=== PATIENT | female | born 1970 | race Caucasian/White ===

== ENCOUNTER 2017-11-08 06:02 | Inpatient (IN) | payer OTHER ==
[~2017-11-08] VITALS: Ht 165.1 cm; Wt 87.8 kg
[2017-11-08] VITALS (19 sets, daily range): BP systolic 112–144; BP diastolic 61–84; PULSE 77–111; RESP 15–20; Ht 165.1 cm; Wt 87.8 kg
[2017-11-08] MEDS ORDERED: POLYMYXIN/BACITRACIN 1L IRRIG ONE (06:45)
[2017-11-08] MEDS ORDERED: BUPIVACAINE 0.5% (SDV) 30 ML INJ ONE (06:46)
[2017-11-08] MEDS ORDERED: LIDOCAINE 1%/EPI 30 ML INJ ONE (06:46)
[2017-11-08] MEDS ORDERED: THROMBIN 5000 UNIT VIAL ONE ×2 (06:46→07:01)
[2017-11-08] MEDS ORDERED: ROCURONIUM 50 MG INJ ONE ×2 (07:00→07:32)
[2017-11-08] MEDS ORDERED: LIDOCAINE 2% (SDV) 5 ML INJ ONE (07:00)
[2017-11-08 07:04] LABS: BASOPHIL # 0.1 10^3/ul (0.0-0.1); BASOPHILS % 0.6 % (0.0-2.0); EOSINOPHILS # 0.2 10^3/ul (0.0-0.5); EOSINOPHILS % 1.7 % (0.0-7.0); HEMATOCRIT 40.9 % (37.0-47.0); HEMOGLOBIN 14.7 g/dl (12.0-16.0); LYMPHOCYTES % 24.7 % (15.0-51.0); MEAN CORPUSCULAR HEMOGLOBIN 31.7 pg (29.0-33.0); MEAN CORPUSCULAR HGB CONC 35.9 g/dl (32.0-37.0); MEAN CORPUSCULAR VOLUME 88.1 fl (82.0-101.0); MEAN PLATELET VOLUME 10.1 fl (7.4-10.4); MONOCYTE # 0.8 10^3/ul (0.3-0.9); MONOCYTES % 6.4 % (0.0-11.0); NEUTROPHILS % 66.3 % (39.0-77.0); PLATELET COUNT 187 10^3/UL (140-415); RED BLOOD COUNT 4.64 10^6/ul (4.20-5.40); RED CELL DISTRIBUTION WIDTH 12.1 % (11.5-14.5)
[2017-11-08 07:20] LABS: INR 1.12; PROTIME 14.6 Sec (11.9-14.9); PT RATIO 1.1
[2017-11-08 07:21] LABS: PARTIAL THROMBOPLASTIN TIME 27.1 Sec (25.0-35.0)
[2017-11-08 07:24] LABS: ALBUMIN/GLOBULIN RATIO 1.17; BILIRUBIN,INDIRECT 0.7 mg/dl (0-1.1); BILIRUBIN,TOTAL 0.7 mg/dl (0.2-1.3); TOTAL PROTEIN 7.4 g/dl (6.1-8.1)
[2017-11-08 07:32] LABS: CALCIUM 9.5 mg/dl (8.4-10.2); CREATININE 0.63 mg/dl (0.44-1.00); POTASSIUM 3.7 mmol/L (3.5-5.1)
[2017-11-08] MEDS ORDERED: PROPOFOL 20 ML ONE (07:32)
[2017-11-08] MEDS ORDERED: MIDAZOLAM 1 MG/ML 2 ML INJ ONE (07:47)
[2017-11-08] MEDS ORDERED: morphine 10 MG INJ ONE (08:27)
[2017-11-08] MEDS ORDERED: DEXAMETHASONE 4 MG/ML 1 ML INJ ONE (08:32)
[2017-11-08] MEDS ORDERED: ONDANSETRON 4 MG INJ ONE (08:32)
[2017-11-08] MEDS ORDERED: GELATIN SIZE 100 SPONGE ONE (08:49)
[2017-11-08] MEDS ORDERED: THROMBIN 5000 UNIT VIAL TOP ONE (09:21)
[2017-11-08] MEDS ORDERED: NEOSTIGMINE 3 MG/3 ML SYRINGE ONE (11:53)
[2017-11-08] MEDS ORDERED: GLYCOPYRROLATE 0.4 MG INJ ONE (11:53)
--- NOTE | 2017-11-08 12:03 | SIPON ---
Date/Time of Note Date/Time of Note DATE: 11/08/17 TIME: 12:00 Operative Report Preoperative Diagnosis 1) L4-5 DDD and lateral recess/foraminal stenosis 2)post laminectomy syndrome Postoperative Diagnosis Same as above Operation/Procedure Performed MIS L4-5 TLIF and redo L. L4 decompressive laminectomy (RTI 12mm height cage, 6.5mm pedicle screws) Surgeon see signature line pharmacy technician assistant None Anesthesia: general Estimated blood loss: 50 - 100 ml's Transfusion Required none Specimen None Grafts/Implants See op report Complications none ALEXANDREA SANCHEZ MD Nov 08, 2017 12:03
[2017-11-08] MEDS ORDERED: HYDROmorphONE (0.2 MG/ML) 10ML SYG IV ONE (12:25)
[2017-11-08] MEDS ORDERED: KETOROLAC 30 MG INJ IV PRN (12:30)
[2017-11-08] MEDS ORDERED: ONDANSETRON 4 MG INJ IV PRN ×2 (12:30)
[2017-11-08] MEDS ORDERED: METOCLOPRAMIDE 10 MG INJ IV PRN (12:30)
[2017-11-08] MEDS ORDERED: FENTAnyl 50 MCG/ML VIAL IV PRN ×3 (12:30)
[2017-11-08] MEDS ORDERED: HYDROmorphONE (0.2 MG/ML) 10ML SYG IV PRN ×2 (12:30)
[2017-11-08] MEDS ORDERED: hydrALAzine 20 MG INJ IV PRN (12:30)
[2017-11-08] MEDS: CEFAZOLIN 1 GM/50 ML (PMX) 50 ML IVPB SCH ×2 (12:30→20:32)
[2017-11-08] MEDS ORDERED: MEPERIDINE 25 MG INJ IV PRN (12:30)
[2017-11-08] MEDS ORDERED: DIPHENHYDRAMINE 50 MG INJ IV PRN (12:30)
[2017-11-08] MEDS ORDERED: ALBUTEROL 0.083% (NEB) 2.5 MG/3 ML AMP HHN PRN ×2 (12:30→15:00)
[2017-11-08] MEDS ORDERED: LABETALOL HCL 20MG INJ IV PRN (12:30)
[2017-11-08] MEDS ORDERED: MIDAZOLAM 1 MG/ML 2 ML INJ IV PRN (12:30)
[2017-11-08] MEDS ORDERED: EPHEDrine SULFATE 50 MG/5 ML SYG IV PRN (12:30)
[2017-11-08] MEDS ORDERED: NALOXONE (0.4 MG/ML) INJ IV PRN (12:30)
[2017-11-08] MEDS ORDERED: BISACODYL 10 MG SUPP PR PRN (12:30)
[2017-11-08] MEDS: HYDROmorphONE (0.2 MG/ML) 10ML SYG IV PRN ×2 (12:35→12:42)
[2017-11-08] MEDS ORDERED: GABAPENTIN 300 MG CAP PO SCH (13:00)
[2017-11-08] MEDS: CYCLOBENZAPRINE 10 MG TAB PO SCH ×2 (13:00→20:44)
[2017-11-08] MEDS: 1/2 NS + KCL 20 MEQ 1,000 ML IV SCH ×2 (13:33→22:15)
[2017-11-08] MEDS: HYDROCODONE/APAP (10/325) TAB PO SCH ×2 (13:39→18:02)
[2017-11-08] MEDS: traMADol 50 MG TAB PO SCH ×2 (13:39→18:03)
[2017-11-08] MEDS: DOCUSATE SODIUM 100 MG CAP PO SCH ×2 (13:39→20:44)
--- NOTE | 2017-11-08 15:02 | HP ---
Date/Time of Note Date/Time of Note DATE: 11/08/17 TIME: 14:45 Assessment/Plan VTE Prophylaxis VTE Prophylaxis Intervention: SCD's Lines/Catheters IV Catheter Type (from Nrsg): Peripheral IV Urinary Cath still in place: Yes Reason Cath still needed: other (indicate) (Postoperatively) Assessment/Plan Assessment/Plan 47-year-old female with: 1. Status post L4-5 TLIF and redo L4 decompressive laminectomy, POD#0 Patient remained comfortable currently, her pain regimen has been reviewed and adjusted. She is on [place] and Flexeril scheduled every [address] Braba, will monitor, I did ask them to change the Ultram as a as needed order. Patient denies being on Neurontin before. PT eval, further recommendations per neurosurgery. 2. Asthma: Respiratory status is currently stable, patient on room air, will add nebulizer treatment as needed. Prophylaxis: SCDs for DVT prophylaxis, Protonix for GI prophylaxis Disposition: Follow-up further physical therapy and neurosurgery recommendations. Hopefully discharge planning in the next 24-48 hours. HPI/ROS Admit Date/Time Admit Date/Time Nov 08, 2017 at 06:02 Hx of Present Illness Chief complaint: Elective L4-L5 laminectomy for L4-L5 degenerative disc disease History of presenting illness: This is a 47-year-old female with history of chronic low back pain and lower extremity pain bilaterally, intractable, unresponsive to physical therapy or pain management who was brought in electively for L4-L5 TLIF and redo L4 decompressive laminectomy with Dr. Barba Patient only reports a past medical history of asthma, she also is a former tobacco user, she quit a few weeks ago. Postoperatively, patient is doing well, pain is controlled. She is admitted to a medical surgical bed for physical therapy and hopefully discharge planning within 24-48 hours. Patient denies any cardiopulmonary, genitourinary, gastrointestinal complaints ROS Constitutional: no complaints Eyes: no complaints ENT: no complaints Respiratory: no complaints Cardiovascular: no complaints Gastrointestinal: no complaints Genitourinary: no complaints Musculoskeletal: back pain, other (Lower extremities pain) Neurologic: no complaints Endocrine: no complaints Lymphatic: no complaints Psychological: no complaints Immunologic: no complaints PMH/Family/Social Past Medical History Asthma Chronic low back pain Past Surgical History C-sections 4 Right knee arthroscopic surgery ACDF in 2006 lumbar Past Surgical Hx: appendectomy, cholecystectomy Family History Significant Family History: no pertinent family hx Social History Alcohol Use: none Smoking Status: Former smoker (Quit smoking a few weeks ago, she used to smoke 2 packs/day for 20 years) Drug Use: none Exam/Review of Systems Vital Signs Vitals Vital Signs Date Time Temp Pulse Resp B/P Pulse Ox O2 Delivery O2 Flow Rate FiO2 11/08/17 13:04 86 16 131/70 96 Nasal Cannula 2.0 11/08/17 12:19 97.9 Exam Constitutional: alert, oriented, well developed Respiratory: clear to auscultation, normal air movement Cardiovascular: nl pulses, regular rate and rhythm Gastrointestinal: non-tender, soft Musculoskeletal: nl extremities to inspection Extremities: normal pulses, other (No edema, clubbing or cyanosis) Neurological: IMPORT/EXPORT ANALYST II-XII intact, nl mental status, nl speech, other (Strength exam and sensation exam difficult, patient just came out of the OR. Will reevaluate in a.m.) Labs Result Diagram: 11/08/17 0630 11/08/17 0630 Medications Medications Current Medications Potassium Chloride/Sodium Chloride (1/2 NS + KCl 20 Meq) 1,000 ml @ 100 mls/hr Q10H IV Last administered on 11/08/17t 13:33; Admin Dose 100 MLS/HR; Start at 12:15 Acetaminophen/ Hydrocodone Bitart ([place] (10/325)) 2 tab Q6H PO ; Start at 12:30 Tramadol HCl (Ultram) 50 mg Q6H PO ; Start 11/08/17 at 12:30; Stop 11/09/17 at 12:30 Hydromorphone HCl 0.4 mg 0.4 mg Q1H PRN IV BREAKTHROUGH PAIN; Start 11/08/17 at 12:30 Cefazolin Sodium (Ancef 1 Gm/50 ml (Pmx)) 50 ml @ 100 mls/hr Q8H IVPB ; Start 11/08/17 at 12:30; Stop 11/09/17 at 04:59 Ondansetron HCl (Zofran Inj) 4 mg Q6H PRN IV NAUSEA AND/OR VOMITING; Start at 12:30 Bisacodyl (Dulcolax Supp) 10 mg DAILY PRN SD CONSTIPATION; Start 11/08/17 at 12:30 Docusate Sodium (Colace) 100 mg BID PO ; Start 11/08/17 at 12:30 Pantoprazole (Protonix Iv) 40 mg DAILY@06 IV ; Start 11/09/17 at 06:00 Cyclobenzaprine HCl (Flexeril) 10 mg TID PO ; Start 11/08/17 at 13:00 Naloxone HCl (Narcan) 0.2 mg Q2M PRN IV RR 8 BREATHS/MIN OR LESS; Start at 12:30 Tramadol HCl (Ultram) 50 mg Q6 PRN PO PAIN; Start 11/08/17 at 18:00; Status UNV Procedures Procedures L4-5 TLRANDY HODGE Nov 08, 2017 14:59
--- NOTE | 2017-11-08 16:16 | RADRPT ---
PROCEDURE: X-ray fluoroscopy guidance CLINICAL INDICATION: L4-L5 spinal fusion. TECHNIQUE: Fluoroscopic guidance was utilized for an intraoperative procedure. Fluoro time: 249 seconds Number of images/sequences: 5 COMPARISON: None. FINDINGS: Fluoroscopic images were obtained intraoperatively for localization during L4-L5 spinal fusion with intervertebral device. The procedure was performed by Dr. Barba. IMPRESSION: 1. X-ray fluoroscopic guidance utilized for intraoperative procedure for L4-L5 spinal fusion. 2. Please refer to the procedural/operative report. RPTAT: AAEE Physician Derek Date Time Electronically viewed and signed by Physician Derek on 11/08/2017 16:16 PH/
[2017-11-08] MEDS: HYDROmorphONE 0.5 MG/0.5 ML SYG IV PRN ×2 (16:30→20:45)
--- NOTE | 2017-11-08 22:28 | OPR ---
Date/Time of Note Date/Time of Note DATE: 11/08/17 TIME: 22:28 Operative Report Preoperative Diagnosis 1. L4-L5 degenerative disc disease and lateral recess/foraminal stenosis 2. Postlaminectomy syndrome Postoperative Diagnosis 1. L4-L5 degenerative disc disease and lateral recess/foraminal stenosis 2. Postlaminectomy syndrome Operation/Procedure Performed 1. Decompressive left L4 laminectomy (more laminectomy done that would be required for a simple lumbar interbody fusion) 2. Minimally invasive total left L4-L5 facetectomy for transforaminal lumbar interbody arthrodesis 3. Placement of intervertebral cage at L4-L5 (RTI [place] 12 mm height peek TLIF cage) 4. Minimally invasive L4-L5 posterior arthrodesis 5. Minimally invasive percutaneous posterior L4-L5 instrumentation (RTI [place] 6.5 mm diameter pedicle screws) 6. Bone marrow aspirate harvest 7. Morcellized local autologous bone graft harvest 8. Allograft placement (demineralized bone matrix putty) 9. Intraoperative microscope with microdissection 10. Intraoperative fluoroscopy with professional interpretation 11. Intraoperative neurophysiologic monitoring including SSEP, MEP, EMG Surgeon see signature line Manager Medical None Anesthesia Type: general Estimated Blood Loss: 50 - 100 ml's Transfusion none Specimen None Grafts/Implants See below Complications none Pt Condition Post Procedure: stable Disposition: PACU Procedure Description Date of surgery: 11/08/2017 Operating surgeon: Jerry Barba M.D. Preoperative diagnosis: 1. L4-L5 degenerative disc disease and lateral recess/foraminal stenosis 2. Postlaminectomy syndrome Postoperative diagnosis: Same as above Operation performed: 1. Decompressive left L4 laminectomy (more laminectomy done that would be required for a simple lumbar interbody fusion) 2. Minimally invasive total left L4-L5 facetectomy for transforaminal lumbar interbody arthrodesis 3. Placement of intervertebral cage at L4-L5 (RTI [place] 12 mm height peek TLIF cage) 4. Minimally invasive L4-L5 posterior arthrodesis 5. Minimally invasive percutaneous posterior L4-L5 instrumentation (RTI [place] 6.5 mm diameter pedicle screws) 6. Bone marrow aspirate harvest 7. Morcellized local autologous bone graft harvest 8. Allograft placement (demineralized bone matrix putty) 9. Intraoperative microscope with microdissection 10. Intraoperative fluoroscopy with professional interpretation 11. Intraoperative neurophysiologic monitoring including SSEP, MEP, EMG Indication for procedure: This is a 47-year-old female with long-standing history of progressively increasing axial low back pain to a much greater degree than bilateral lower extremity radiating pain (greater on the left than the right in part in the L5 distribution). The patient has already undergone extensive physical therapy as well as prior interventional pain management including various injections with no significant long-term improvement of her symptoms. The patient also has had a remote history of a lumbar laminectomy that initially helped her with her radiating lower extremity pain but has been accompanied by increasing axial low back pain over time. She was found to have the above image findings on her MRI of lumbar spine and the risks and benefits of the above operation were explained in great detail to the patient. She was not accompanied by her to her clinic visits with me and her was taking care of her children this morning prior to surgery. It was also explained to the patient that she does have L3-L4 small disc herniation that could lead to further adjacent segment degeneration over time and may also require further surgical intervention including extension of her lumbar fusion to the level above or below the current level. She also understood that she may still have residual pain even with the above operation. She agreed to undergo the above surgery. Intraoperative procedure: The patient was brought to the operating room. After general anesthesia was obtained, she was placed prone on top of the open Dg table. All pressure points were noted and padded appropriately. Her arms were abducted in Superman position, less than 90. The patient's prior midline lumbar incision was noted. Then, paraspinal vertical lines approximately 4.5 centimeters lateral to midline was marked on each side. After the skin was prepped and draped under standard sterile fashion, the spinal needle was used under AP and lateral fluoroscopy to locate the entry points of the L4 and L5 pedicles on each side. Then a small incision connecting the entry points of the spinal needles on each side was marked. Local anesthetics were infiltrated into the marked incisions on each side. The skin was then incised down to the level of the fascia. The Jamshidi needles were then used to cannulate the L4 and L5 pedicles bilaterally using a combination of AP and lateral fluoroscopy. When the tip of the Jamshidi needle was at the junction of the pedicle and vertebral body, another AP fluoroscopy was taken to confirm that the medial wall of the pedicle was not breached. The Jamshidi needle was then slightly advanced into the vertebral body under direct lateral fluoroscopy. Several cc of bone marrow aspirate was harvested from each of the pedicles through the Jamshidi needle. The Jamshidi needles were then exchanged with K wires. Each of the K wires was then tested with EMG testing and all the testing thresholds was greater then 12 mA. 6.5 mm diameter RTI [place] percutaneous pedicle screws were then inserted on the right side at L4 and L5 under direct lateral fluoroscopy achieving good bony purchase. No screws were placed on the left side yet as we were doing the transforaminal lumbar interbody fusion procedure on this side. The K wires were then bent and stapled to the side of the drapes on the left side. The sharp K wire was inserted under direct lateral fluoroscopy and placed on top of the left L4-L5 facet complex under direct lateral fluoroscopy parallel to the L4-L5 disc space that was very severely collapsed and degenerated. Serial tube dilators were inserted and the posterior soft tissue was dissected off the facet complex. The final working tube was inserted medialized and locked to the table parallel to the L4-L5 disc space under direct lateral fluoroscopy. The operating microscope was brought into the field. The soft tissue was then denuded off the L4-L5 facet complex. There was obvious facet arthropathy noted at L4-L5 on the left. Using a high-speed drill, and Kerrison rongeurs we then performed a complete left L4-L5 facetectomy and a left L4 decompressive laminectomy. All the bone was harvested for later grafting. The left L4-L5 neural foramen was then completely unroofed. The exiting left L4 nerve root was left Completely covered up with the soft tissue and protected. The left L4-L5 annulus was then cut open and the disc space was extremely small. Using the thinnest shaver, we were able to initially distract the severely collapsed disc space for starters. Then we were able to severely distract using the top of her janiya up until a 12 mm shaver. Care was taken not to injure the endplates. The endplate bone quality appeared to be quite good. Endplates were completely decorticated. Complete discectomy was done. The disc space was then copiously irrigated with antibiotic solution. We then decided to use a 12 mm height peek RTI [place] TLIF. Cage was then packed with a combination of the locally harvested pedicle bone marrow aspirate, morcellized local autologous bone graft and demineralized bone matrix putty allograft. Some of the remaining biologic material was then inserted into the anterior disc space. Then the cage was inserted under direct lateral fluoroscopy, medialized and countersunk. This allowed us to achieve excellent distraction of the severely collapsed L4-L5 disc space. We then removed the ligamentum flavum and completely decompressed the left side of the thecal sac and the traversing left L5 nerve root. Complete hemostasis was obtained. Several pieces of Gelfoam with thrombin were placed over the left L4- L5 neural foramen to protect it. The remaining combination of biologic material was placed over the L4-L5 neural foramen for posterior arthrodesis. The tube was then removed. Same sized pedicle screws were also placed on the left side at L4-L5 under direct lateral fluoroscopy. Appropriate size yoshi was then measured and inserted percutaneously. The setscrews were inserted and we compressed along the L4-L5 disc space on each side. The setscrews were then tightened with the torque and counter torque wrench devices. The pedicle screw posts were then broken off. A final AP and lateral x-ray showed excellent positioning of the hardware. The wound was copiously irrigated with antibiotic solution on both sides. The muscle and fascial layers were reapproximated with interrupted sutures. The dermal layer was reapproximated with interrupted sutures. The skin was reapproximated with Dermabond. A sterile dressing was placed on each incision. The patient was then placed supine on the hospital bed. She was then woken up, extubated and transported to the recovery room in stable condition. The patient was moving her upper and lower extremities equally bilaterally and to command in the recovery room. Estimated blood loss: 100 cc Blood products administered: none Packs/drains: None Specimen removed: None Type of anesthesia: Gen. Incision: Bilateral paraspinal lumbar Skin closure: Dermabond Patient's condition: Stable Prognosis: Good Wound classification: JERRY Yusuf MD Nov 08, 2017 22:28
[2017-11-09] MEDS: traMADol 50 MG TAB PO SCH ×3 (00:30→11:29)
[2017-11-09] MEDS: HYDROCODONE/APAP (10/325) TAB PO SCH ×3 (00:39→13:04)
[2017-11-09 02:29] VITALS: BP 132/74; RESP 18
[2017-11-09] MEDS: CEFAZOLIN 1 GM/50 ML (PMX) 50 ML IVPB SCH (04:50)
[2017-11-09] MEDS ORDERED: PANTOPRAZOLE 40 MG INJ IV SCH (06:00)
[2017-11-09 06:22] LABS: BASOPHILS % 0.2 % (0.0-2.0); HEMATOCRIT 36.6 % (37.0-47.0); HEMOGLOBIN 12.7 g/dl (12.0-16.0); LYMPHOCYTES # 2.4 10^3/ul (0.8-2.9); LYMPHOCYTES % 12.9 % (15.0-51.0); MEAN CORPUSCULAR HEMOGLOBIN 31.4 pg (29.0-33.0); MEAN CORPUSCULAR HGB CONC 34.7 g/dl (32.0-37.0); MEAN CORPUSCULAR VOLUME 90.6 fl (82.0-101.0); MEAN PLATELET VOLUME 10.3 fl (7.4-10.4); MONOCYTE # 1.4 10^3/ul (0.3-0.9); MONOCYTES % 7.3 % (0.0-11.0); NEUTROPHIL # 14.7 10^3/ul (1.6-7.5); NEUTROPHILS % 79.1 % (39.0-77.0); PLATELET COUNT 182 10^3/UL (140-415); RED BLOOD COUNT 4.04 10^6/ul (4.20-5.40); RED CELL DISTRIBUTION WIDTH 11.9 % (11.5-14.5); WHITE BLOOD COUNT 18.5 10^3/ul (4.8-10.8)
[2017-11-09 06:59] LABS: CALCIUM 8.6 mg/dl (8.4-10.2); CREATININE 0.65 mg/dl (0.44-1.00); POTASSIUM 4.2 mmol/L (3.5-5.1)
[2017-11-09 07:04] LABS: MAGNESIUM 1.9 mg/dl (1.7-2.5); PHOSPHORUS 3.3 mg/dl (2.5-4.9)
[2017-11-09] MEDS: 1/2 NS + KCL 20 MEQ 1,000 ML IV SCH (07:32)
[2017-11-09 08:17] VITALS: BP 122/63; RESP 18
[2017-11-09] MEDS: CYCLOBENZAPRINE 10 MG TAB PO SCH ×2 (08:54→13:04)
[2017-11-09] MEDS: DOCUSATE SODIUM 100 MG CAP PO SCH (08:54)
[2017-11-09] MEDS ORDERED: HYDROmorphONE 2 MG TAB PO PRN (10:46)
--- NOTE | 2017-11-09 10:51 | PN ---
Date/Time of Note Date/Time of Note DATE: 11/09/17 TIME: 10:37 Assessment/Plan VTE Prophylaxis VTE Prophylaxis Intervention: SCD's Lines/Catheters IV [facility] Saline Lock Urinary Cath still in place: No Assessment/Plan Assessment/Plan 47-year-old female with: 1. Status post L4-5 TLIF and redo L4 decompressive laminectomy, POD#1 Patient doing much better, she has ambulated with physical therapy already, Gupta catheter is removed. Pain is controlled. Discharge plan home today. Follow-up with Dr. Barba within 7-10 days. 2. Asthma: Respiratory status is currently stable, patient on room air, will add nebulizer treatment as needed. 3. Chronic shoulder pain, patient apparently has been taken prednisone for anti -inflammatory purposes, I will give her 1 dose of 10 mg today however she needs to follow-up for PCP for any further management. 4. Leukocytosis: Likely related to demargination and also patient reports that she has been taking prednisone as outpatient for shoulder pain and stiffness and just finished a course recently. No signs of acute infection. Prophylaxis: SCDs for DVT prophylaxis, Protonix for GI prophylaxis Disposition: Discharge home today with outpatient follow-up with primary care physician within [address] Barba within 7-10 days Subjective 24 Hr Interval Summary Free Text/Dictation Patient is doing better today, she has a brace, she has ambulated, Gupta catheter is out. Will check with neurosurgery but otherwise discharge planned for today home. Exam/Review of Systems Vital Signs Vitals Vital Signs Date Time Temp Pulse Resp B/P Pulse Ox O2 Delivery O2 Flow Rate FiO2 11/09/17 08:17 97.8 81 18 122/63 93 11/08/17 16:10 Nasal Cannula 2.0 Intake and Output 11/08/17 11/08/17 11/09/17 15:00 23:00 07:00 Intake Total 1800 ml 1270 ml 1450 ml Output Total 700 ml 750 ml 1300 ml Balance 1100 ml 520 ml 150 ml Exam Constitutional: alert, oriented, well developed Respiratory: clear to auscultation, normal air movement Cardiovascular: nl pulses, regular rate and rhythm Gastrointestinal: non-tender, soft Musculoskeletal: nl extremities to inspection Extremities: normal pulses, other (No edema, clubbing or cyanosis) Neurological: WELDING MACHINE TENDER II-XII intact, nl mental status, nl speech, other (Good ambulation today.) Results Result Diagram: 11/09/17 0450 11/09/17 0450 Results 24 hrs Laboratory Tests Test 11/09/17 04:50 11/09/17 04:51 White Blood Count 18.5 #H Red Blood Count 4.04 L Hemoglobin 12.7 Hematocrit 36.6 L Mean Corpuscular Volume 90.6 Mean Corpuscular Hemoglobin 31.4 Mean Corpuscular Hemoglobin Concent 34.7 Red Cell Distribution Width 11.9 Platelet Count 182 Mean Platelet Volume 10.3 Neutrophils % 79.1 H Lymphocytes % 12.9 L Monocytes % 7.3 Eosinophils % 0.0 Basophils % 0.2 Nucleated Red Blood Cells % 0.0 Neutrophils # 14.7 H Lymphocytes # 2.4 Monocytes # 1.4 H Eosinophils # 0.0 Basophils # 0.0 Nucleated Red Blood Cells # 0.0 Sodium Level 140 Potassium Level 4.2 Chloride Level 104 Carbon Dioxide Level 27 Anion Gap 13 Blood Urea Nitrogen 12 Creatinine 0.65 Glucose Level 143 Calcium Level 8.6 Phosphorus Level 3.3 Magnesium Level 1.9 Medications Medications Current Medications Potassium Chloride/Sodium Chloride (/ NS + KCl 20 Meq) 1,000 ml @ 100 mls/hr Q10H IV Last administered on 11/08/17 13:33; Admin Dose 100 MLS/HR; Start at 12:15 Acetaminophen/ Hydrocodone Bitart ([place] (10/325)) 2 tab Q6H PO Last administered on 11/09/17 06:24; Admin Dose 2 TAB; Start 11/08/17 at 12:30 Tramadol HCl (Ultram) 50 mg Q6H PO ; Start 11/08/17 at 12:30; Stop 11/09/17 at 12:30 Hydromorphone HCl (Dilaudid) 0.4 mg Q1H PRN IV BREAKTHROUGH PAIN Last administered on 11/08/17 20:45; Admin Dose 0.4 MG; Start 11/08/17 at 12:30 Ondansetron HCl (Zofran Inj) 4 mg Q6H PRN IV NAUSEA AND/OR VOMITING; Start at 12:30 Bisacodyl (Dulcolax Supp) [address] CONSTIPATION; Start 11/08/17 at 12:30 Docusate Sodium (Colace) 100 mg BID PO Last administered on 11/09/17 08:54; Admin Dose 100 MG; Start 11/08/17 at 12:30 Pantoprazole (Protonix Iv) 40 mg DAILY@06 IV Last administered on 11/09/17 05 :33; Admin Dose 40 MG; Start 11/09/17 at 06:00 Cyclobenzaprine HCl (Flexeril) 10 mg TID PO Last administered on 11/09/17 08: 54; Admin Dose 10 MG; Start 11/08/17 at 13:00 Naloxone HCl (Narcan) 0.2 mg Q2M PRN IV RR 8 BREATHS/MIN OR LESS; Start at 12:30 Tramadol HCl (Ultram) 50 mg Q6H PRN PO PAIN; Start 11/09/17 at 13:00 RANDY HOOPER Nov 09, 2017 10:47
[2017-11-09] MEDS ORDERED: predniSONE 10 MG TAB PO ONE (11:00)
--- NOTE | 2017-11-09 11:02 | PDOCDIS ---
Discharge Instructions CONDITION Patient Condition: Stable HOME CARE INSTRUCTIONS: Diet Instructions: Regular ACTIVITY: Activity Restrictions: Slowly Increase Activity FOLLOW UP/APPOINTMENTS Follow-up Plan Follow-up with primary care physician within 1 week Follow-up with Dr. Barba, neurosurgery, within 7-10 days RANDY HOOPER Nov 09, 2017 11:02
[2017-11-09] MEDS ORDERED: CYCL-319 PO (11:04)
[2017-11-09] MEDS ORDERED: Hydrocodone/Apap (10/325) PO (11:04)
[2017-11-09] MEDS ORDERED: DOCU-216 PO (11:04)
[2017-11-09] MEDS ORDERED: traMADol 50 MG TAB PO PRN (13:00)
[2017-11-09 14:00] VITALS: BP 125/69; RESP 18
--- NOTE | 2017-11-09 18:52 | PN ---
Date/Time of Note Date/Time of Note DATE: 11/09/17 TIME: 18:49 Assessment/Plan VTE Prophylaxis VTE Prophylaxis Intervention: ambulation Lines/Catheters IV Catheter Type (from Nrsg): Saline Lock Urinary Cath still in place: No Assessment/Plan Assessment/Plan POD #1, doing very well, ambulating on her own, voiding spontaneously, tolerating PO. Lumbar incisions clean dry intact. Pain controlled. Preop LE radiating pain decreased. Gave further post op instructions to patient and at bedside. Pt will follow up w/ my clinic in 2-3 weeks. No use of NSAIDS x 4 months. LSO brace when up and ambulating. May shower starting ban. No baths x 3 weeks. Patient being discharged home this evening. ALEXANDREA SANCHEZ MD Nov 09, 2017 18:52
== END 2017-11-09 19:00 | disposition home or self-care (01) | DRG 460 ==
LOC: REC 06:02 → MS1 12:55
PROVIDERS: ADMIT Neurological Surgery; ATTEND Neurological Surgery
PROC: 0ST20ZZ Resection of Lumbar Vertebral Disc, Open Approach (ICD-10-PCS; 2017-11-08)
PROC: 07DS3ZZ Extraction of Vertebral Bone Marrow, Percutaneous Approach (ICD-10-PCS; 2017-11-08)
PROC: 0SG00AJ Fusion of Lumbar Vertebral Joint with Interbody Fusion Device, Posterior Approach, Anterior Column, Open Approach (ICD-10-PCS; principal; 2017-11-08 07:30)
DX: M51.36 Other intervertebral disc degeneration, lumbar region (principal); J45.909 Unspecified asthma, uncomplicated; Z72.0 Tobacco use; M96.1 Postlaminectomy syndrome, not elsewhere classified; M25.519 Pain in unspecified shoulder; Z79.52 Long term (current) use of systemic steroids
CPT/HCPCS: 72100; 80048; 80053; 83735; 84100; 85025; 85610; 85730; 86850; 86900; 86901; 97116; 97530; C9113; J0690; J1100; J1170; J1200; J2250; J2270; J2405; J2710; J2765; J3010; J3480; J7512